=== PATIENT | male | born 1955 | race Hispanic/Latino ===

== ENCOUNTER 2021-09-30 13:31 | Emergency (ER) | payer MEDICARE ==
[~2021-09-30] VITALS: Ht 170.2 cm; Wt 108.9 kg
[2021-09-30 13:58] LABS: BASOPHILS % (AUTO) 0.4 % (0.0-5.0); EOSINOPHILS % (AUTO) 2.2 % (0.0-8.0); HEMATOCRIT 44.7 % (42-54); MEAN CORPUSCULAR HEMOGLOBIN 30.6 pg (27.0-33.0); MEAN CORPUSCULAR HGB CONC 32.7 g/dL (32.0-36.0); MEAN CORPUSCULAR VOLUME 93.7 fL (79-99); MONOCYTES % (AUTO) 14.3 % (3.0-13.0); NEUTROPHILS % (AUTO) 53.9 % (40.0-77.0); PLATELET COUNT (AUTO) 104 K/uL (130-400); RED BLOOD CELL COUNT(AUTO) 4.77 MIL/uL (4.50-6.20); RED CELL DISTRIBUTION WIDTH 13.2 % (11.0-15.5); WHITE BLOOD COUNT (AUTO) 4.6 K/uL (4.8-10.8)
[2021-09-30] MEDS ORDERED: ASPIRIN 325MG EC TAB PO ONE (14:00)
[2021-09-30] MEDS ORDERED: 0.9% NACL 500ML IV.SOLN 500 ML IV ONE (14:00)
[2021-09-30 14:22] LABS: CREATININE 0.9 mg/dL (0.5-1.5); POTASSIUM 3.5 mmol/L (3.5-5.1)
[2021-09-30 14:29] LABS: ALBUMIN 3.2 g/dL (3.5-5.0); BILIRUBIN,TOTAL 0.8 mg/dL (0.2-1.0); TOTAL PROTEIN, SERUM 6.9 g/dL (6.0-8.3)
[2021-09-30 14:39] LABS: APPEARANCE,URINE Cloudy (CLEAR); BILIRUBIN,URINE Small (NEGATIVE); COLOR,URINE Dark Yellow (YELLOW); GLUCOSE, URINE (UA) Negative (NEGATIVE); KETONES,URINE Trace mg/dL (NEGATIVE); LEUKOCYTE ESTERASE ,URINE Moderate (NEGATIVE); NITRATE,URINE Negative (NEGATIVE); OCCULT BLOOD,URINE Negative (NEGATIVE); PROTEIN,URINE POS 1+ mg/dL (NEGATIVE)
[2021-09-30 14:53] LABS: BACTERIA,URINE Few /HPF (None Seen); MUCUS,URINE Few LPF (None Seen); SQUAMOUS EPITHELIAL CELL,UR Moderate /HPF (0-2)
[2021-09-30] MEDS ORDERED: KETOROLAC 15MG/ML VIAL (15MG/ML) IV ONE (16:30)
[2021-09-30] MEDS ORDERED: CEFTRIAXONE 1G VIAL IV ONE (16:30)
[2021-09-30] MEDS ORDERED: ACET-66 PO (16:50)
[2021-09-30] MEDS ORDERED: CEPH500B PO (16:50)
[2021-09-30 17:00] VITALS: BP 132/80
== END 2021-09-30 17:03 | disposition home or self-care (01) ==
LOC: EDH 13:31
DX: R07.89 Other chest pain (principal); N39.0 Urinary tract infection, site not specified; F32.A Depression, unspecified; E78.00 Pure hypercholesterolemia, unspecified; Z90.89 Acquired absence of other organs; Z98.890 Other specified postprocedural states
CPT/HCPCS: 36415; 71045; 80053; 81001; 83880; 84484 ×2; 85025; 87088; 93005 ×2; 96374; 96375; 99285; J0696; J1885; J7040

== ENCOUNTER → 2023-07-24 | Outpatient (CLI) | payer OTHER ==
[~2023-07-24] MED LIST: ACET-66 PO; CEPH500B PO
== END | disposition home or self-care (01) ==
LOC: RAH 12:50
PROVIDERS: ATTEND Family Medicine
DX: N20.0 Calculus of kidney (principal); R31.29 Other microscopic hematuria; N28.1 Cyst of kidney, acquired
CPT/HCPCS: 74176

== ENCOUNTER 2024-02-12 19:52 | Emergency (ER) | payer OTHER, MEDICARE ==
[~2024-02-12] VITALS: Ht 170.2 cm; Wt 108.9 kg
[2024-02-12] MEDS: LIDOCAINE HCL 1% 20 ML VIAL INJ STA (21:32)
[2024-02-12] MEDS: CEFAZOLIN SODIUM 1 GM VIAL IM STA (21:32)
[2024-02-12] MEDS: TETANUS/DIPHTHERIA TOXOID [ADULT] 0.5 ML VIAL IM ONE (21:33)
[2024-02-12] MEDS: NEOMY SULF/BACITRA/POLYMYXIN B 1 EACH PACKET TP STA (22:07)
[2024-02-12 22:59] VITALS: BP 152/74; PULSE 61; RESP 20; O2SAT 97
== END 2024-02-12 23:03 | disposition home or self-care (01) ==
LOC: EDH 19:52
DX: S01.21XA Laceration without foreign body of nose, initial encounter (principal); E78.00 Pure hypercholesterolemia, unspecified; I10 Essential (primary) hypertension; F32.A Depression, unspecified; Z79.899 Other long term (current) drug therapy; Z90.49 Acquired absence of other specified parts of digestive tract; Z98.890 Other specified postprocedural states; X58.XXXA Exposure to other specified factors, initial encounter; Y93.89 Activity, other specified; Y92.89 Other specified places as the place of occurrence of the external cause; Y99.8 Other external cause status
CPT/HCPCS: 99284; 12013; 90714; 96372; 90471; J0690

== ENCOUNTER → 2024-06-08 | Outpatient (CLI) | payer OTHER, MEDICARE ==
[2024-06-08 14:38] LABS: CREATININE 1.1 mg/dL (0.5-1.3)
== END | disposition home or self-care (01) ==
LOC: LAB 13:46
PROVIDERS: ATTEND Internal Medicine Gastroenterology
DX: R10.30 Lower abdominal pain, unspecified (principal)
CPT/HCPCS: 36415; 82565; 84520

== ENCOUNTER → 2024-06-17 | Outpatient (CLI) | payer OTHER, MEDICARE ==
[~2024-06-17] MED LIST changes: +IOHEXOL 350 MG/ML 100ML INFUS..BTL IV ONE
--- NOTE | 2024-06-17 11:22 | HMCIMG ---
CT ABDOMEN/PELVIS W/CONTRAST HISTORY: Lower abdominal pain COMPARISON: 07/24/2023 TECHNIQUE: Multiple sequential axial images of the abdomen and pelvis were obtained from the dome of the diaphragm through symphysis pubis. Patient was given 100 cc of Omnipaque through intravenous route. Oral contrast was not given. FINDINGS: No pleural effusion is seen bilaterally. There is no evidence of parenchymal disease or pulmonary nodule of the visualized lower lungs. Degenerative changes of the thoracolumbar spine are present. The heart is not enlarged. There are abdominal varices. The liver measures 14 cm. Spleen measured 13 cm. There is liver parenchymal disease may be related to cirrhosis. The liver, spleen, adrenal glands and pancreas are unremarkable. There is no evidence of hydronephrosis bilaterally. There may be tiny 2 mm left renal pelvic stones. There are bilateral renal cysts with the largest left kidney measuring 13 mm. There is small bladder polyp versus renal stone in the right UV junction measuring 4 mm. There is diverticulosis. Fecal material is seen in the colon. There are normal size retroperitoneal and mesenteric lymph nodes. No ascites is seen. Atherosclerotic changes are present. Pelvic sidewalls are symmetric bilaterally. Bladder is moderately distended. IMPRESSION: 1. There is no evidence of hydronephrosis bilaterally. There may be tiny 2 mm left renal pelvic stones. There are bilateral renal cysts with the largest left kidney measuring 13 mm. There is small bladder polyp versus renal stone in the right UV junction measuring 4 mm. There is diverticulosis. Liver parenchymal disease with enlarged spleen and abdominal varices. CT was performed with one or more following dose reduction techniques: automated exposure control, adjustment of the mA and kv according to patient's size, or use of a iterative reconstruction technique.
== END | disposition home or self-care (01) ==
LOC: RAH 09:58
PROVIDERS: ATTEND Internal Medicine Gastroenterology
DX: N28.1 Cyst of kidney, acquired (principal); R10.30 Lower abdominal pain, unspecified; M47.815 Spondylosis without myelopathy or radiculopathy, thoracolumbar region; K57.90 Diverticulosis of intestine, part unspecified, without perforation or abscess without bleeding; K76.89 Other specified diseases of liver
CPT/HCPCS: 74177; Q9967 ×2

== ENCOUNTER 2025-02-06 07:43 | Emergency (ER) | payer OTHER, MEDICARE ==
[~2025-02-06] VITALS: Ht 170.2 cm; Wt 113.4 kg
[~2025-02-06 07:43] MED LIST changes: -IOHEXOL 350 MG/ML 100ML INFUS..BTL IV ONE
--- NOTE | 2025-02-06 07:53 | ERN ---
General Chief Complaint: Post-Op Problem Stated Complaint: MOUTH, NOSE PAIN, POST OP NASAL SX Time Seen by MD: 07:45 Source: patient History of Present Illness Initial Comments Patient is a 69-year-old male coming in complaining of facial pain. Per patient he recently had a nasal septum repair. He states that the nasal septum was repaired a couple of days ago but he is in excruciating pain he states that his PCP Dr. Galindo started him on antibiotics and Tylenol for pain. He states that this is not working. Allergies: Coded Allergies: No Known Drug Allergies (Unverified Allergy, Unknown, 09/30/21) Home Meds Active Scripts Acetaminophen (Tylenol) 500 Mg Tab, 500 MG PO Q4PRN PRN for PAIN LEVEL 4 TO 6, #15 TAB Prov:FITTING,HARMAN ICU NURSE 09/30/21 Cephalexin Monohydrate (Keflex) 500 Mg Cap, 500 MG PO QID for 7 Days, #28 CAP Prov:FITTING,HARMAN ICU NURSE 09/30/21 Past Medical History Past Medical History: Depression, High Cholesterol, Hypertension Past Surgical History: Appendectomy Surgical History Other: HERNIA REPAIR, ABD SURGERY ROS Dictation CONSTITUTIONAL: No chills, no fever, no weakness, no diaphoresis, no malaise. HEAD/FACE: No signs of trauma. EENT: No eye pain, no blurred vision, no tearing, no double vision, no ear pain, no ear discharge, no nose pain, no nasal congestion, no throat pain, no throat swelling, no mouth pain. RESPIRATORY: No cough, no orthopnea, no SOB, no stridor, no wheezing. CARDIOVASCULAR: No chest pain, no edema, no palpitations, no syncope. GASTROINTESTINAL/ABDOMINAL: No abdominal pain, no constipation, no diarrhea, no nausea, no vomiting. GENITOURINARY: No abnormal discharge, no dysuria, no frequent urination, no hematuria. No complaints of pain in the genitals. MUSCULOSKELETAL: No back pain, no gout, no joint pain, no joint swelling, no muscle pain, no muscle stiffness, no neck pain. INTEGUMENTARY: No change in color, no change in hair/nails, no dryness, no lesion, no lumps, no rash. NEUROLOGICAL/PSYCH: No anxiety, not depressed, no emotional problem, no headache, no numbness, no pre-existing deficit, no history of seizures, no say mors, no weakness. HEMATOLOGIC/LYMPHATIC: Not anemic, no history of blood clots, no apparent bleeding, no bruising, glands not swollen. All Systems Negative, Except as Noted. Physical Exam Physical Exam Dictation VITAL SIGNS: Reviewed. GENERAL APPEARANCE: Alert, oriented x3, no acute distress, obese. HEAD AND FACE: Non-traumatic. EYES: PERRL, pink conjunctivas, eyelid no trauma, anterior chamber clear. EARS: Pinnas intact and no signs of trauma or erythema. Ear canals clear and no discharge. TMs no erythema. NOSE: No discharge, no bleeding. OROPHARYNX: Mouth normal, teeth no caries, tongue pink. Pharynx clear, no erythema. Tonsils no exudates, no abscesses noted. Mucous membrane moist. NECK: Supple, non-tender, no thyromegaly, no masses, no JVD, no bruits. BREAST: Deferred. CHEST: No tenderness, no crepitus, no paradoxical movement, no retractions. LUNGS: Clear, well-ventilated, symmetric, no rales, no wheezing, no rhonchi, no stridor, good breath sounds bilaterally. HEART: Regular rate, regular rhythm, no murmur, no gallops. VASCULAR: No peripheral edema. ABDOMEN: Soft, positive bowel sounds, nondistended, no guarding, nontender, no rebound, no masses no hepatomegaly, no splenomegaly, no Dodson's sign, no hernias. RECTAL: Deferred. GENITAL: Deferred. NEUROLOGICAL: Normal speech, gross motor function intact, gross sensory function intact. MUSCULOSKELETAL: Neck nontender, full range of motion, back nontender, full range of motion. EXTREMITIES: Nontender, full range of motion. SKIN: Color pink, dry, no turgor, no rash, no lacerations, no abrasions, no contusions. LYMPHATICS: Deferred. Results Laboratory and Microbiology Lab and Micro Result Laboratory Tests Test 02/06/25 07:56 White Blood Count 9.4 K/uL (4.8-10.8) Red Blood Count 4.40 MIL/uL (4.50-6.20) L Hemoglobin 14.5 g/dL (14.0-18.0) Hematocrit 42.8 % (42-54) Mean Corpuscular Volume 97.3 fL (79-99) Mean Corpuscular Hemoglobin 33.0 pg (27.0-33.0) Mean Corpuscular Hemoglobin Concent 33.9 g/dL (32.0-36.0) Red Cell Distribution Width 13.0 % (11.0-15.5) Platelet Count 102 K/uL (130-400) L Mean Platelet Volume 10.8 fL (7.5-10.5) H Immature Granulocyte % (Auto) 0.3 % (0-1) Neutrophils (%) (Auto) 60.3 % (40.0-77.0) Lymphocytes (%) (Auto) 25.6 % (21.0-51.0) Monocytes (%) (Auto) 12.6 % (3.0-13.0) Eosinophils (%) (Auto) 1.0 % (0.0-8.0) Basophils (%) (Auto) 0.2 % (0.0-5.0) Neutrophils # (Auto) 5.7 K/uL (1.8-7.7) Lymphocytes # (Auto) 2.4 K/uL (1.0-4.8) Monocytes # (Auto) 1.2 K/uL (0.1-1.0) H Eosinophils # (Auto) 0.09 K/uL (0.00-0.70) Basophils # (Auto) 0.02 K/uL (0.00-0.20) Absolute Immature Granulocyte (auto 0.03 K/uL (0-1) Nucleated Red Blood Cells 0.0 % (0.0-0.19) Sodium Level 141 mmol/L (136-145) Potassium Level 4.0 mmol/L (3.5-5.1) Chloride Level 107 mmol/L (101-111) Carbon Dioxide Level 30 mmol/L (21-32) Blood Urea Nitrogen 23 mg/dL (7-18) H Creatinine 1.1 mg/dL (0.5-1.3) Glomerular Filtration Rate Calc 73 mL/min (>90) Random Glucose 86 mg/dL (70-105) Total Calcium 8.0 mg/dL (8.5-10.1) L Labs Reviewed?: Yes EKG/XRAY/US/CT/MRI CT Scan Comment [facility] [address] [place] [id number] IMAGING REPORT Signed PATIENT: REGINALDO LEDBETTER MR#: [id number] : 1955 SEX: M AGE: 69 LOCATION: [facility] ORDER 0751 STATUS: REG ER REPORT#: [id number] SERVICE [id number] REASON: facial pain ORDERING PHYSICIAN: PARKER VILLALOBOS MD PROCEDURE: MAXFACI WO - CT MAXILLOFACIAL W/O CONTRAST EXAM: CT Maxillofacial Without IV contrast. CLINICAL HISTORY: Facial pain. TECHNIQUE: Axial computed tomography images of the face without intravenous contrast. Sagittal and coronal reformatted images were generated. CONTRAST: None. COMPARISON: None provided. FINDINGS: FACIAL BONES/ORBITS: No acute fracture or aggressively appearing osseous lesion. The mandible is intact. The orbits are normal. No retrobulbar hematoma or mass. Mild scattered mucosal thickening in the paranasal sinuses. The nasal septum is deviated to the left side. SOFT TISSUES: The soft tissues are unremarkable. No radiopaque foreign body or focal fluid collection. IMPRESSION: No acute facial bone fracture is evident. Mild scattered mucosal thickening in the paranasal sinuses. The nasal septum is deviated to the left side. /[place] DICTATED BY: DAVIDE MCDANIELS Jr., MD DATE: 02/06/25 114 ELECTRONICALLY SIGNED BY: DAVIDE MCDANIELS Jr., MD DATE: 02/06/25 114 [facility] MDM: Differential diagnosis: Sinusitis, postop pain, Rationale: Tests considered and ordered secondary to shared decision making include: Previous outside records reviewed: Old ER visits. Risk of complication and/or morbidity or mortality of patient management: None Medications-Per medication reconciliation Need for hospitalization: Patient does not meet criteria for hospitalization. Patient is a 69-year-old gentleman coming in complaining of facial pain. Patient recently had nasal septal surgery and states he has been having pain since then. No fever or chills no nausea no vomiting. Laboratory workup within normal limits as well as CT. Patient will be discharged with a diagnosis of sinusitis. I did advised him appropriate follow up with PCP and/or ENT to continue monitoring symptoms. ED Course Orders Procedure Category Date Status Time Cbc With Differential LAB 02/06/25 Complete 07:49 Basic Metabolic Panel LAB 02/06/25 Complete 07:49 Ct Maxillofacial W/O CT 02/06/25 Resulted Contrast 07:49 Tramadol Hcl (Ultram) PHA 02/06/25 Complete 09:30 Current Medications Medications (Trade) Dose Ordered Sig/Sherice Route PRN Reason Start Time Stop Time Status Last Admin Dose Admin Tramadol HCl (UltRAM) 50 mg ONCE ONCE PO 02/06/25 09:30 02/06/25 09:31 DC 02/06/25 09:15 Vital Signs Date Time Temp Pulse Resp B/P (MAP) Pulse Ox O2 Delivery O2 Flow Rate FiO2 02/06/25 10:38 98.1 70 16 150/85 99 Room Air* 0 21 02/06/25 07:45 98.1 71 16 161/87 99 Room Air 0 DX & DISP Disposition: Discharge Departure Impression: Primary Impression: Sinusitis Additional Impression: Postoperative pain Condition: Stable Scripts Acetaminophen with Codeine (Acetaminophen-Cod #3 Tablet) 300 Mg-30 Mg Tablet 1 TAB PO BID PRN for pain for 3 Days, #6 TAB 0 Refills Prov: PARKER VILLALOBOS MD 02/06/25 Methocarbamol (Robaxin) 750 Mg Tab 1 TAB PO BID for 5 Days, #10 TAB 0 Refills Prov: PARKER VILLALOBOS MD 02/06/25 Additional Instructions: FOLLOW-UP WITH PRIMARY CARE PROVIDER IN 1 TO 2 DAYS. TAKE MEDICATIONS DIRECTED HERE IN THE EMERGENCY ROOM. OKAY TO CONTINUE HOME MEDICATIONS UNLESS OTHERWISE DISCUSSED DURING YOUR VISIT IN THE EMERGENCY ROOM TODAY. RETURN TO YOUR NEAREST EMERGENCY ROOM IF SYMPTOMS WORSEN OR IF THERE IS NO IMPROVEMENT. CALL 911 IF YOU NEED IMMEDIATE ASSISTANCE. TAKE TYLENOL [id number] NEEDED AND IF NO CONTRAINDICATIONS ARE PRESENT. INCREASE ORAL HYDRATION. A W OUND CULTURE OR URINE CULTURE WAS ORDERED HERE IN THE EMERGENCY ROOM DEPARTMENT PLEASE FOLLOW-UP WITH PRIMARY CARE PROVIDER AND ADVISE THEM TO GET REPORTS FROM OUR FACILITY. IF YOU HAD ANY VARINDER WRAP/SPLINTS THAT WERE APPLIED HERE, PLEASE DO NOT REMOVE THEM UNTIL YOU SEE YOUR PRIMARY CARE OR SPECIALTY. Referrals: Referrals: MARLENA GALINDO JR, MD (PCP) HANSA WEIR MD Time of Disposition: 10:58 PARKER VILLALOBOS MD Feb 06, 2025 07:53
[2025-02-06 08:06] LABS: IMMATURE GRANULOCYTE ABSOLUTE 0.03 K/uL (0-1); NUCLEATED RED BLOOD CELLS 0.0 % (0.0-0.19); PLATELET COUNT (AUTO) 102 K/uL (130-400); RED BLOOD CELL COUNT(AUTO) 4.40 MIL/uL (4.50-6.20); RED CELL DISTRIBUTION WIDTH 13.0 % (11.0-15.5); WHITE BLOOD COUNT (AUTO) 9.4 K/uL (4.8-10.8)
[2025-02-06 08:13] LABS: CREATININE 1.1 mg/dL (0.5-1.3); GLOMERULAR FILTR. RATE CALC 73.0 mL/min (>90); GLUCOSE,RANDOM 86.0 mg/dL (70-105); SODIUM SERUM 141.0 mmol/L (136-145); UREA NITROGEN, BLOOD 23.0 mg/dL (7-18)
--- NOTE | 2025-02-06 08:30 | NUR ---
PT MOVED INTO INTERNAL WAITING AREA FOR ASSESMENT AND PAIN CONTROL AT THIS TIME.
[2025-02-06 10:38] VITALS: BP 150/85; PULSE 70; RESP 16; TEMP 98.1; O2SAT 99
--- NOTE | 2025-02-06 10:47 | HMCIMG ---
EXAM: CT Maxillofacial Without IV contrast. CLINICAL HISTORY: Facial pain. TECHNIQUE: Axial computed tomography images of the face without intravenous contrast. Sagittal and coronal reformatted images were generated. CONTRAST: None. COMPARISON: None provided. FINDINGS: FACIAL BONES/ORBITS: No acute fracture or aggressively appearing osseous lesion. The mandible is intact. The orbits are normal. No retrobulbar hematoma or mass. Mild scattered mucosal thickening in the paranasal sinuses. The nasal septum is deviated to the left side. SOFT TISSUES: The soft tissues are unremarkable. No radiopaque foreign body or focal fluid collection. IMPRESSION: No acute facial bone fracture is evident. Mild scattered mucosal thickening in the paranasal sinuses. The nasal septum is deviated to the left side. /[place]
[2025-02-06] MEDS ORDERED: METH-662 PO (10:59)
[2025-02-06] MEDS ORDERED: ACET-2079 PO (10:59)
== END 2025-02-06 11:11 | disposition home or self-care (01) ==
LOC: EDH 07:43
DX: J32.9 Chronic sinusitis, unspecified (principal); G89.18 Other acute postprocedural pain; E78.00 Pure hypercholesterolemia, unspecified; I10 Essential (primary) hypertension; Z90.49 Acquired absence of other specified parts of digestive tract; Z98.890 Other specified postprocedural states
CPT/HCPCS: 36415; 70486; 80048; 85025; 99284